=== PATIENT | female | born 1940 | race Caucasian/White ===

== ENCOUNTER → 2016-08-10 | Outpatient (CLI) | payer OTHER ==
[~2016-08-10] MED LIST: ATEN-60; CYCL5TAB; DICY10CA55; PREMARIN; SERT20CO; [UNRECOGNIZED DRUG - OTHER]
[2016-08-10 08:55] LABS: Urine RBC None Seen /hpf (0 - 4)
[2016-08-10 09:05] LABS: Basophils # (auto) 0 uL; Basophils % (auto) 0.3 % (0.0-2.0); Eosinophils # (auto) 0.1 uL; Eosinophils % (auto) 1.2 % (0.0-7.0); Hematocrit 44.6 % (36.0-46.0); Hemoglobin 14.7 g/dL (12.2-16.2); Lymphocytes # (auto) 1.6 uL; Lymphocytes % (auto) 29.7 % (10.0-50.0); Mean Corpuscular Hemoglobin 31.4 pg (28.0-32.0); Mean Corpuscular Hgb Conc. 32.9 g/dL (32.0-36.0); Mean Corpuscular Volume 95.4 fL (80.0-100.0); Mean Platelet Volume 9.9 fL (7.4-10.4); Monocytes # (auto) 0.4 uL; Monocytes % (auto) 7.5 % (0.0-12.0); Neutrophils # (auto) 3.3 uL; Neutrophils % (auto) 61.3 % (37.0-80.0); Platelet Count (auto) 275 10^3/uL (140-450); Red Cell Distribution Width 13.9 % (11.6-16.0); White Blood Cell 5.4 10^3/uL (4.4-10.8)
[2016-08-10 09:29] LABS: Urine Bilirubin Negative (Negative); Urine Blood Negative /uL (Negative); Urine Color Yellow (Yellow); Urine Glucose Normal (Normal); Urine Ketone Negative (Negative); Urine Squamous Epithelial Cell FEW /hpf (<5); Urine Urobilinogen Normal (Negative); Urine pH 5.5 (5.0-8.0)
[2016-08-10 09:30] LABS: Albumin 3.9 g/dL (3.4-5.0); BUN/Creatinine Ratio 26.5; Bilirubin, Total 0.6 mg/dL (0.2-1.0); Calcium 9.3 mg/dL (8.5-10.1); Potassium 4.2 mmol/L (3.5-5.1); Total Protein 7.6 g/dL (6.4-8.2); Urine Nitrite POSITIVE (Negative)
== END | disposition home or self-care (01) ==
LOC: LAB 06:40
PROVIDERS: ATTEND Family Medicine
DX: I10 Essential (primary) hypertension (principal); E78.4 Other hyperlipidemia; G61.89 Other inflammatory polyneuropathies
CPT/HCPCS: 36415; 80053; 80061; 81001; 82306; 82607; 83036; 84443; 85025; 85049

== ENCOUNTER → 2017-11-06 | Outpatient (CLI) | payer OTHER ==
[2017-11-06 08:24] LABS: Basophils # (auto) 0 uL; Basophils % (auto) 0.8 % (0.0-2.0); Eosinophils # (auto) 0.1 uL; Hematocrit 44.2 % (36.0-46.0); Hemoglobin 14.8 g/dL (12.2-16.2); Lymphocytes # (auto) 1.6 uL; Lymphocytes % (auto) 32.7 % (10.0-50.0); Mean Corpuscular Hemoglobin 32.3 pg (28.0-32.0); Mean Corpuscular Hgb Conc. 33.4 g/dL (32.0-36.0); Mean Corpuscular Volume 96.6 fL (80.0-100.0); Monocytes # (auto) 0.4 uL; Monocytes % (auto) 7.6 % (0.0-12.0); Neutrophils # (auto) 2.7 uL; Neutrophils % (auto) 56.9 % (37.0-80.0); Platelet Count (auto) 249 10^3/uL (140-450); Red Blood Cells 4.58 10^6/uL (4.0-5.20); Red Cell Distribution Width 13.5 % (11.8-14.3); White Blood Cell 4.8 10^3/uL (4.4-10.8)
[2017-11-06 08:59] LABS: Urine Bacteria FEW /hpf (None Seen); Urine Blood Negative /uL (Negative); Urine Specific Gravity 1.007 (1.001-1.035); Urine WBC 2 /hpf (0 - 5)
[2017-11-06 09:06] LABS: Albumin 3.9 g/dL (3.4-5.0); BUN/Creatinine Ratio 26.7; Bilirubin, Total 0.8 mg/dL (0.2-1.0); Calcium 9.6 mg/dL (8.5-10.1); Potassium 4.5 mmol/L (3.5-5.1)
== END | disposition home or self-care (01) ==
LOC: LAB 07:48
PROVIDERS: ATTEND Internal Medicine
DX: E78.5 Hyperlipidemia, unspecified (principal); I10 Essential (primary) hypertension; E78.4 Other hyperlipidemia; R42 Dizziness and giddiness
CPT/HCPCS: 36415; 80053; 80061; 81001; 83036; 84443; 85025

== ENCOUNTER → 2017-11-18 | Outpatient (CLI) | payer OTHER ==
[~2017-11-18] VITALS: Ht 167.6 cm; Wt 70.3 kg
[~2017-11-18] MED LIST changes: +ADENOSINE 59 MG in GIVE UN-DILUTED 0 ML IV ONE
[2017-11-18 11:31] VITALS: BP 174/74
== END | disposition home or self-care (01) ==
LOC: XY 09:29
PROVIDERS: ATTEND Internal Medicine
DX: I10 Essential (primary) hypertension (principal); E78.5 Hyperlipidemia, unspecified
CPT/HCPCS: 78452; 93017; A9500; J0153

== ENCOUNTER → 2017-11-20 | Outpatient (CLI) | payer OTHER ==
[~2017-11-20] MED LIST changes: -ADENOSINE 59 MG in GIVE UN-DILUTED 0 ML IV ONE
== END | disposition home or self-care (01) ==
LOC: XYW 09:53
PROVIDERS: ATTEND Internal Medicine
DX: R07.89 Other chest pain (principal); I10 Essential (primary) hypertension; E78.5 Hyperlipidemia, unspecified
CPT/HCPCS: 93306

== ENCOUNTER 2017-12-23 04:29 | Emergency (ER) | payer OTHER ==
[~2017-12-23] VITALS: Ht 167.6 cm; Wt 70.8 kg
[2017-12-23 05:39] LABS: Basophils # (auto) 0 uL; Basophils % (auto) 0.8 % (0.0-2.0); Eosinophils # (auto) 0.1 uL; Eosinophils % (auto) 2.1 % (0.0-7.0); Hematocrit 39.4 % (36.0-46.0); Hemoglobin 13.2 g/dL (12.2-16.2); Lymphocytes # (auto) 1.3 uL; Lymphocytes % (auto) 27.5 % (10.0-50.0); Mean Corpuscular Hgb Conc. 33.5 g/dL (32.0-36.0); Mean Corpuscular Volume 98.6 fL (80.0-100.0); Monocytes # (auto) 0.5 uL; Monocytes % (auto) 10.9 % (0.0-12.0); Neutrophils # (auto) 2.7 uL; Neutrophils % (auto) 58.7 % (37.0-80.0); Nucleated Red Blood Cells % 0.1 %; Platelet Count (auto) 215 10^3/uL (140-450); Red Cell Distribution Width 13.8 % (11.8-14.3); White Blood Cell 4.6 10^3/uL (4.4-10.8)
[2017-12-23 05:53] LABS: Albumin 3.1 g/dL (3.4-5.0); Anion Gap 9 (5-15); Blood Urea Nitrogen 30 mg/dL (7-18); Calcium 8.9 mg/dL (8.5-10.1); Carbon Dioxide 24 mmol/L (21-32); Chloride 107 mmol/L (98-107); Glucose 85 mg/dL (74-106); Magnesium 2.3 mg/dL (1.6-2.6); Sodium 140 mmol/L (136-145)
[2017-12-23 05:54] LABS: Alanine Aminotransferase 22 U/L (13-56); Aspartate Aminotransferase 19 U/L (15-37); BUN/Creatinine Ratio 26.3; GFR African American 59 mL/min; GFR Non-African American 49 mL/min
[2017-12-23 05:59] LABS: Alkaline Phosphatase 72 U/L (45-117); Bilirubin, Total 0.5 mg/dL (0.2-1.0); Total Protein 6.7 g/dL (6.4-8.2)
[2017-12-23 09:02] LABS: Urine Bacteria MOD /hpf (None Seen); Urine Blood Negative /uL (Negative); Urine Specific Gravity 1.005 (1.001-1.035); Urine WBC 2 /hpf (0 - 5)
[2017-12-23] MEDS ORDERED: cefTRIAXone 1GM/10ml IVPUSH 10 ML IV ONE (09:45)
[2017-12-23 10:30] VITALS: BP 158/89
[2017-12-24] MEDS ORDERED: BACL10TA PO (15:01)
[2017-12-24] MEDS ORDERED: ATEN-60 PO (15:01)
[2017-12-24] MEDS ORDERED: GABA300C10 PO (15:01)
[2017-12-24] MEDS ORDERED: DICY20TA66 PO (15:01)
[2017-12-24] MEDS ORDERED: EST0625T PO (15:01)
[2017-12-24] MEDS ORDERED: NITR100C6 PO (15:01)
[2017-12-24] MEDS ORDERED: LISI-646 PO (15:01)
[2017-12-24] MEDS ORDERED: MELO1TAB73 PO (15:01)
[2017-12-24] MEDS ORDERED: EZET10TA6 PO (15:01)
[2017-12-24] MEDS ORDERED: HYDR12.56 PO (15:01)
== END 2017-12-23 10:58 | disposition home or self-care (01) ==
LOC: ER 04:31
DX: R07.89 Other chest pain (principal); N39.0 Urinary tract infection, site not specified; I10 Essential (primary) hypertension; Z90.710 Acquired absence of both cervix and uterus; Z88.6 Allergy status to analgesic agent; Z88.8 Allergy status to other drugs, medicaments and biological substances
CPT/HCPCS: 36415; 71045; 80053; 81001; 83735; 83880; 84484; 85025; 93005; 94761; 96374

== ENCOUNTER → 2017-12-24 | Outpatient (CLI) | payer OTHER ==
[~2017-12-24] MED LIST changes: +ATEN-60 PO; +BACL10TA PO; +DICY10CA12 PO; +DICY20TA66 PO; +EST0625T PO; +EZET10TA6 PO; +GABA300C10 PO; +HYDR12.56 PO; +LISI-646 PO; +MELO1TAB73 PO; +NITR100C6 PO
[2017-12-24 13:54] LABS: INR 0.93 (0.9-1.15); Partial Thromboplastin Time 26.6 sec (23.78-33.04)
== END | disposition home or self-care (01) ==
LOC: LAB 13:20
PROVIDERS: ATTEND Internal Medicine
DX: Z01.810 Encounter for preprocedural cardiovascular examination (principal); R07.89 Other chest pain; I10 Essential (primary) hypertension; E78.5 Hyperlipidemia, unspecified
CPT/HCPCS: 36415; 85610; 85730

== ENCOUNTER 2017-12-25 07:41 | Inpatient (IN) | payer OTHER ==
[~2017-12-25] VITALS: Ht 167.6 cm; Wt 70.9 kg
[~2017-12-25 07:41] MED LIST changes: -ATEN-60; -CYCL5TAB; -DICY10CA12 PO; -DICY10CA55; -PREMARIN; -SERT20CO; -[UNRECOGNIZED DRUG - OTHER]
[2017-12-25] MEDS ORDERED: IODIXANOL 320MG/ML 100ML BTL IV ONE ×2 (08:55→14:46)
[2017-12-25] MEDS ORDERED: LIDOCAINE 2%HCL (LOCAL ANESTH.) INJ 20ML MDV ONE ×2 (08:56→13:25)
[2017-12-25] MEDS ORDERED: HEPARIN IN NS 1000Units/500mL 0 ML ONE (08:56)
[2017-12-25] MEDS ORDERED: IOHEXOL 350 MG/ML 100ML IJ ONE ×2 (13:25→14:24)
[2017-12-25] MEDS ORDERED: ANGIOMAX 250 MG VIAL IV ONE (13:54)
[2017-12-25] MEDS ORDERED: MIDAZOLAM HCL 1MG/1ML-2 ML VIAL ONE ×2 (13:54→14:35)
[2017-12-25] MEDS ORDERED: fentaNYL CITRATE 100 MCG/2 ML VL ONE (13:54)
[2017-12-25] MEDS ORDERED: SODIUM CHL 0.9% 50 ML ONE (13:55)
[2017-12-25] MEDS ORDERED: GLYCOPYRROLATE 0.2 MG/ML 1ML VIAL ONE (13:57)
[2017-12-25] MEDS ORDERED: TICAGRELOR 90 MG TAB ONE (14:58)
[2017-12-25] MEDS ORDERED: ASPirin 325 MG TAB ONE (15:03)
[2017-12-25] MEDS ORDERED: NITROGLYCERIN 0.4 MG SL TAB SL PRN (15:30)
[2017-12-25] MEDS ORDERED: MORPHINE SULFATE 8mg/ml INJ SDV IV PRN (15:30)
[2017-12-25] MEDS ORDERED: LORazepam 0.5 MG TAB PO PRN (15:30)
[2017-12-25] MEDS ORDERED: DICY10CA12 PO (17:21)
[2017-12-25] MEDS: DICYCLOMINE HCL 10 MG CAP PO SCH ×2 (18:00→21:34)
[2017-12-25] MEDS ORDERED: IBUPROFEN 400 MG TAB PO PRN (20:15)
[2017-12-25] MEDS: GABAPENTIN 300 MG CAP PO SCH (21:34)
[2017-12-25] MEDS: BACLOFEN 10 MG TAB PO SCH (21:34)
[2017-12-25] MEDS: TICAGRELOR 90 MG TAB PO SCH (21:35)
[2017-12-25] MEDS: ATENOLOL 25 MG TAB PO SCH (21:39)
[2017-12-25] MEDS: MELOXICAM 7.5MG PO SCH (21:39)
[2017-12-25] MEDS: SODIUM CHLOR 0.9% PF (SALINE LOCK) 10ML VIAL/SYR IV SCH (21:40)
[2017-12-25 21:53] VITALS: BP 105/62
[2017-12-26 04:47] VITALS: BP 94/56
[2017-12-26] MEDS: DICYCLOMINE HCL 10 MG CAP PO SCH ×4 (05:08→21:16)
[2017-12-26] MEDS: SODIUM CHLOR 0.9% PF (SALINE LOCK) 10ML VIAL/SYR IV SCH ×3 (05:08→21:19)
[2017-12-26] MEDS: BACLOFEN 10 MG TAB PO SCH ×3 (05:08→21:16)
[2017-12-26 09:38] VITALS: BP 90/55
[2017-12-26 10:00] VITALS: BP 111/72
[2017-12-26] MEDS ORDERED: HCTZ 25 MG TAB PO SCH (10:00)
[2017-12-26] MEDS ORDERED: PREMARIN 0.625 MG PO SCH (10:00)
[2017-12-26] MEDS: MELOXICAM 7.5MG PO SCH ×2 (10:00→21:19)
[2017-12-26] MEDS ORDERED: LISINOPRIL 20 MG TAB PO SCH (10:00)
[2017-12-26] MEDS: ATENOLOL 25 MG TAB PO SCH (10:00)
[2017-12-26] MEDS: GABAPENTIN 300 MG CAP PO SCH ×2 (10:53→21:16)
[2017-12-26] MEDS: TICAGRELOR 90 MG TAB PO SCH ×2 (10:53→21:16)
[2017-12-26] MEDS: ASPirin 81 mg TAB PO SCH (10:54)
[2017-12-26 13:12] LABS: Basophils # (auto) 0 uL; Basophils % (auto) 0.6 % (0.0-2.0); Eosinophils # (auto) 0.1 uL; Eosinophils % (auto) 1.8 % (0.0-7.0); Hematocrit 40.6 % (36.0-46.0); Hemoglobin 13.6 g/dL (12.2-16.2); Lymphocytes # (auto) 0.4 uL; Lymphocytes % (auto) 7.8 % (10.0-50.0); Mean Corpuscular Hemoglobin 32.6 pg (28.0-32.0); Mean Corpuscular Hgb Conc. 33.5 g/dL (32.0-36.0); Mean Corpuscular Volume 97.3 fL (80.0-100.0); Monocytes # (auto) 0.3 uL; Monocytes % (auto) 6.8 % (0.0-12.0); Neutrophils # (auto) 3.9 uL; Platelet Count (auto) 232 10^3/uL (140-450); Red Blood Cells 4.17 10^6/uL (4.0-5.20); White Blood Cell 4.7 10^3/uL (4.4-10.8)
[2017-12-26 13:18] VITALS: BP 106/65
[2017-12-26 13:32] LABS: BUN/Creatinine Ratio 18.9; Potassium 3.6 mmol/L (3.5-5.1)
[2017-12-26 16:57] VITALS: BP 103/59
[2017-12-26] MEDS: RANOLAZINE ER 500 MG TAB PO SCH (21:16)
[2017-12-26] MEDS: ATORVASTATIN 20 MG TAB PO SCH (21:16)
[2017-12-26 22:00] VITALS: BP 103/60
[2017-12-27 05:09] VITALS: BP 118/61
[2017-12-27] MEDS: DICYCLOMINE HCL 10 MG CAP PO SCH ×4 (05:12→22:09)
[2017-12-27] MEDS: SODIUM CHLOR 0.9% PF (SALINE LOCK) 10ML VIAL/SYR IV SCH ×3 (05:12→22:08)
[2017-12-27] MEDS: BACLOFEN 10 MG TAB PO SCH ×3 (05:12→22:09)
[2017-12-27 09:12] VITALS: BP 105/58
[2017-12-27] MEDS: MELOXICAM 7.5MG PO SCH (10:00)
[2017-12-27] MEDS: ASPirin 81 mg TAB PO SCH (10:09)
[2017-12-27] MEDS: TICAGRELOR 90 MG TAB PO SCH ×2 (10:09→22:23)
[2017-12-27] MEDS: GABAPENTIN 300 MG CAP PO SCH ×2 (10:09→22:08)
[2017-12-27] MEDS: RANOLAZINE ER 500 MG TAB PO SCH ×2 (10:09→22:22)
[2017-12-27 13:09] VITALS: BP 107/74
[2017-12-27] MEDS: MECLIZINE HCL 25 MG TAB PO SCH ×2 (13:36→22:08)
[2017-12-27 17:00] VITALS: BP 128/90
[2017-12-27] MEDS: SODIUM CHLORIDE 0.9% 1,000 ML IV SCH (17:17)
[2017-12-27 22:00] VITALS: BP 123/64
[2017-12-27] MEDS: ATORVASTATIN 20 MG TAB PO SCH (22:09)
[2017-12-28] MEDS: SODIUM CHLORIDE 0.9% 1,000 ML IV SCH (05:10)
[2017-12-28] MEDS: DICYCLOMINE HCL 10 MG CAP PO SCH ×4 (05:11→21:42)
[2017-12-28] MEDS: BACLOFEN 10 MG TAB PO SCH ×3 (05:11→21:31)
[2017-12-28] MEDS: MECLIZINE HCL 25 MG TAB PO SCH ×3 (05:11→21:30)
[2017-12-28] MEDS: SODIUM CHLOR 0.9% PF (SALINE LOCK) 10ML VIAL/SYR IV SCH ×3 (05:13→21:32)
[2017-12-28 05:15] VITALS: BP 115/73
[2017-12-28 07:11] LABS: BUN/Creatinine Ratio 23.2; Calcium 8.1 mg/dL (8.5-10.1); Potassium 3.8 mmol/L (3.5-5.1)
[2017-12-28 09:00] VITALS: BP 136/90
[2017-12-28] MEDS: TICAGRELOR 90 MG TAB PO SCH ×2 (09:23→21:31)
[2017-12-28] MEDS: ASPirin 81 mg TAB PO SCH (09:23)
[2017-12-28] MEDS: RANOLAZINE ER 500 MG TAB PO SCH ×2 (09:23→21:31)
[2017-12-28] MEDS: GABAPENTIN 300 MG CAP PO SCH ×2 (09:23→21:31)
[2017-12-28 10:17] LABS: Urine Bacteria MOD /hpf (None Seen); Urine Blood Negative /uL (Negative); Urine Specific Gravity 1.006 (1.001-1.035); Urine WBC 66 /hpf (0 - 5)
[2017-12-28 13:00] VITALS: BP 123/69
[2017-12-28] MEDS ORDERED: NITROFURANTOIN (MONO) 100 mg CAP PO ONE (13:00)
[2017-12-28 17:00] VITALS: BP 143/84
[2017-12-28] MEDS: NITROFURANTOIN (MONO) 100 mg CAP PO SCH (21:31)
[2017-12-28] MEDS: ATORVASTATIN 20 MG TAB PO SCH (21:31)
[2017-12-28 22:00] VITALS: BP 129/76
[2017-12-29 05:13] VITALS: BP 161/94
[2017-12-29] MEDS ORDERED: IBUPROFEN 600 MG TAB PO PRN (05:15)
[2017-12-29] MEDS: MECLIZINE HCL 25 MG TAB PO SCH ×2 (05:28→15:16)
[2017-12-29] MEDS: BACLOFEN 10 MG TAB PO SCH ×2 (05:28→15:17)
[2017-12-29] MEDS: SODIUM CHLOR 0.9% PF (SALINE LOCK) 10ML VIAL/SYR IV SCH ×2 (05:30→15:16)
[2017-12-29] MEDS: DICYCLOMINE HCL 10 MG CAP PO SCH ×2 (05:31→12:00)
[2017-12-29 07:46] VITALS: BP 139/92
[2017-12-29] MEDS: GABAPENTIN 300 MG CAP PO SCH (10:39)
[2017-12-29] MEDS: NITROFURANTOIN (MONO) 100 mg CAP PO SCH (10:39)
[2017-12-29] MEDS: TICAGRELOR 90 MG TAB PO SCH (10:40)
[2017-12-29] MEDS: ASPirin 81 mg TAB PO SCH (10:40)
[2017-12-29] MEDS: RANOLAZINE ER 500 MG TAB PO SCH (10:40)
[2017-12-29 12:23] VITALS: BP 119/65
[2017-12-29 16:12] VITALS: BP 118/78
== END 2017-12-29 17:00 | disposition home or self-care (01) | DRG 247 ==
LOC: CATH 07:41 → WEST WING 07:42 → TELE-WESTW 12-26 08:08
PROVIDERS: ADMIT Internal Medicine; ATTEND Internal Medicine
PROC: 0270346 Dilation of Coronary Artery, One Artery, Bifurcation, with Drug-eluting Intraluminal Device, Percutaneous Approach (ICD-10-PCS; principal; 2017-12-25)
PROC: 4A023N7 Measurement of Cardiac Sampling and Pressure, Left Heart, Percutaneous Approach (ICD-10-PCS; 2017-12-25)
PROC: B2111ZZ Fluoroscopy of Multiple Coronary Arteries using Low Osmolar Contrast (ICD-10-PCS; 2017-12-25)
PROC: B2151ZZ Fluoroscopy of Left Heart using Low Osmolar Contrast (ICD-10-PCS; 2017-12-25)
PROC: B3151ZZ Fluoroscopy of Bilateral Common Carotid Arteries using Low Osmolar Contrast (ICD-10-PCS; 2017-12-25)
PROC: B3181ZZ Fluoroscopy of Bilateral Internal Carotid Arteries using Low Osmolar Contrast (ICD-10-PCS; 2017-12-25)
PROC: B31C1ZZ Fluoroscopy of Bilateral External Carotid Arteries using Low Osmolar Contrast (ICD-10-PCS; 2017-12-25)
DX: I25.10 Atherosclerotic heart disease of native coronary artery without angina pectoris (principal); N17.9 Acute kidney failure, unspecified; N39.0 Urinary tract infection, site not specified; E78.5 Hyperlipidemia, unspecified; N18.9 Chronic kidney disease, unspecified; I12.9 Hypertensive chronic kidney disease with stage 1 through stage 4 chronic kidney disease, or unspecified chronic kidney disease; Z95.5 Presence of coronary angioplasty implant and graft; Z88.6 Allergy status to analgesic agent; Z88.8 Allergy status to other drugs, medicaments and biological substances
CPT/HCPCS: 36415; 71046; 80048; 81001; 85025; 93005; 99152; C1874; J2250; Q9967

== ENCOUNTER 2018-01-04 03:25 | Emergency (ER) | payer OTHER ==
[~2018-01-04] VITALS: Ht 167.6 cm; Wt 77.1 kg
[~2018-01-04 03:25] MED LIST changes: +DICY10CA12 PO; -DICY20TA66 PO
[2018-01-04] MEDS ORDERED: EPINEPHrine HCL 1 MG/10 ML SYRG IV ONE (03:26)
[2018-01-04] MEDS ORDERED: SODIUM BICARBONATE 8.4% INJ 50ML SYRINGE IV ONE (03:26)
[2018-01-04 03:28] VITALS: BP 0/0
== END 2018-01-04 09:12 | disposition expired ==
LOC: EDBD 03:25 → ER 03:25 → EDUNIT# 03:25 → ER 09:12
DX: I46.9 Cardiac arrest, cause unspecified (principal); E78.5 Hyperlipidemia, unspecified; I25.10 Atherosclerotic heart disease of native coronary artery without angina pectoris; I10 Essential (primary) hypertension; Z90.710 Acquired absence of both cervix and uterus; Z88.8 Allergy status to other drugs, medicaments and biological substances; Z88.5 Allergy status to narcotic agent
CPT/HCPCS: 92950; 99285; J0171